=== PATIENT | male | born 1990 | race Caucasian/White ===

== ENCOUNTER 2017-02-28 18:06 | Emergency (ER) | payer OTHER ==
[~2017-02-28] VITALS: Ht 170.2 cm; Wt 70.3 kg
--- NOTE | 2017-02-28 18:57 | NUR ---
MD is at bedside evaluating patient, pending MD orders
--- NOTE | 2017-02-28 19:01 | NUR ---
Hands off report given to URIEL dejesus.
[2017-02-28] MEDS ORDERED: IBUPROFEN 600 MG TABLET PO ONE (19:15)
--- NOTE | 2017-02-28 19:27 | NUR ---
Gave pt RX and d/c instructions, verbalized understanding.
[2017-02-28] MEDS ORDERED: IBUPROFEN 600 MG TABLET ONE (19:29)
== END 2017-02-28 19:28 | disposition home or self-care (01) ==
LOC: ER 18:08
DX: S13.4XXA Sprain of ligaments of cervical spine, initial encounter (principal); I10 Essential (primary) hypertension; F12.10 Cannabis abuse, uncomplicated; V49.9XXA Car occupant (driver) (passenger) injured in unspecified traffic accident, initial encounter; Y93.89 Activity, other specified; Y92.410 Unspecified street and highway as the place of occurrence of the external cause; Y99.8 Other external cause status
CPT/HCPCS: A4663

== ENCOUNTER 2017-11-02 13:03 | Emergency (ER) | payer OTHER ==
[~2017-11-02] VITALS: Ht 170.2 cm; Wt 70.3 kg
[2017-11-02 14:23] VITALS: BP 136/99
--- NOTE | 2017-11-02 14:24 | NUR ---
Patient discharged to home in stable conditon. Written and verbal after care instructions given. Patient verbalizes understanding of instructions.
== END 2017-11-02 14:24 | disposition home or self-care (01) ==
LOC: ER 13:03
DX: S29.012A Strain of muscle and tendon of back wall of thorax, initial encounter (principal); I10 Essential (primary) hypertension; F17.200 Nicotine dependence, unspecified, uncomplicated; F12.10 Cannabis abuse, uncomplicated; V49.40XA Driver injured in collision with unspecified motor vehicles in traffic accident, initial encounter; Y93.89 Activity, other specified; Y92.410 Unspecified street and highway as the place of occurrence of the external cause; Y99.8 Other external cause status
CPT/HCPCS: A4663